=== PATIENT | male | born 1965 | race Caucasian/White ===

== ENCOUNTER 2017-03-07 17:28 | Inpatient (IN) | payer OTHER ==
[~2017-03-07] VITALS: Ht 177.8 cm; Wt 106.2 kg
[2017-03-07 18:29] LABS: INTER. NORMALIZED RATIO 1.8; PROTHROMBIN TIME 19.7 SEC (10.2-12.9)
[2017-03-07 18:32] LABS: CHLORIDE 103 mEq/L (99-109); POTASSIUM 4.1 mEq/L (3.7-5.4); SODIUM 137 mEq/L (136-147)
[2017-03-07 18:34] LABS: GLUCOSE 148 mg/dL (70-99)
[2017-03-07 18:36] LABS: ANION GAP 15 MEQ/L (2-14); TOTAL BILIRUBIN 2.9 mg/dL (0.0-1.0)
[2017-03-07 18:38] LABS: ALKALINE PHOSPHATASE 87 IU/L (3-129); GFR ESTIMATE (CALCULATED) > 59 mL/min/
[2017-03-07 18:39] LABS: UREA NITROGEN (BUN) 2 mg/dL (9-23)
[2017-03-07 18:41] LABS: LIPASE 101 U/L (1.0-51.0)
[2017-03-07 18:55] LABS: HEMATOCRIT 19.4 % (38.0-50.0); MCH 18.8 PG (29.0-34.0); MCHC 26.8 G/DL (30.0-36.0); MCV 70.3 FL (86-99); NRBC (%) 1.2 /100 WBC (0-0); PLATELET COUNT 82 K/uL (156-360); RBC DIS.WIDTH-CV 20.3 % (11.8-14.6); RBC DIS.WIDTH-SD 51.5 % (39-53); RED BLOOD COUNT 2.76 M/uL (4.00-5.50); WHITE BLOOD COUNT 3.4 K/uL (4.1-10.2)
[2017-03-07 19:02] LABS: ADD MIUA? YES; BILIRUBIN NEGATIVE; BLOOD NEGATIVE; COLOR YELLOW ((YELLOW)); GLUCOSE (STRIP) NEGATIVE; KETONES NEGATIVE; LEUKOCYTES NEGATIVE; NITRITE NEGATIVE; PROTEIN (STRIP) NEGATIVE; SPECIFIC GRAVITY 1.005 (1.000-1.030); UROBILINOGEN 0.2 MG/DL (0.2-1.0)
[2017-03-07 19:18] LABS: BACTERIA RARE /HPF; EPITHELIAL CELLS NONE SEEN /HPF; MUCUS NONE SEEN /LPF; RED BLOOD CELLS 0-5 /HPF (0-5); UCUL ADDED? NO; WHITE BLOOD CELLS 0-5 /HPF (0-5)
[2017-03-07 20:14] VITALS: BP 129/73
[2017-03-07 20:32] VITALS: BP 120/76
[2017-03-07] MEDS ORDERED: ADVIL200 MG PO (20:34)
[2017-03-07] MEDS ORDERED: COLBENEMID1 TABLET PO (20:36)
[2017-03-07 21:17] VITALS: BP 95/75
[2017-03-07 22:41] VITALS: BP 108/65
[2017-03-07 23:00] VITALS: BP 117/71; BP 117/74
[2017-03-08] VITALS (10 sets, daily range): BP systolic 101–124; BP diastolic 55–66
[2017-03-08 03:48] LABS: INTERNAL CONTROL VALID? YES
[2017-03-08 07:53] LABS: EOSINOPHIL (%) 2.2 % (0-5); EOSINOPHIL COUNT 0.1 K/uL (0-0.3); HEMATOCRIT 22.3 % (38.0-50.0); IMMATURE GRANULOCYTE (%) 0.6 % (0.0-0.7); INSTRUMENT ABS NEUTROPHIL CT 2.1 K/uL; LYMPHOCYTE COUNT 0.4 K/uL (1.0-2.8); MCHC 28.3 G/DL (30.0-36.0); MCV 74.3 FL (86-99); MONOCYTE (%) 18.2 % (3-12); MONOCYTE COUNT 0.6 K/uL (0-0.8); NEUTROPHIL (%) 65.8 % (45-76); NEUTROPHIL COUNT 2.1 K/uL (1.8-6.4); NRBC (%) 0.6 /100 WBC (0-0); PLATELET COUNT 74 K/uL (156-360); RBC DIS.WIDTH-CV 21.4 % (11.8-14.6); RBC DIS.WIDTH-SD 57.3 % (39-53); WHITE BLOOD COUNT 3.2 K/uL (4.1-10.2)
[2017-03-08 08:08] LABS: INTER. NORMALIZED RATIO 1.9; PROTHROMBIN TIME 21.5 SEC (10.2-12.9)
[2017-03-08 08:50] LABS: INTERNAL CONTROL VALID? YES
[2017-03-08 09:01] LABS: ALKALINE PHOSPHATASE 71 IU/L (3-129); ANION GAP 15 MEQ/L (2-14); CHLORIDE 103 MEQ/L (99-109); GFR ESTIMATE (CALCULATED) > 59 mL/min/; GLUCOSE 112 mg/dL (70-99); POTASSIUM 3.6 MEQ/L (3.7-5.4); SAMPLE HEMOLYSIS CHECK 0; SAMPLE ICTERIC CHECK 1; SAMPLE LIPEMIA CHECK 0; SODIUM 142 MEQ/L (136-147); TOTAL BILIRUBIN 4.7 MG/DL (0.0-1.0); UREA NITROGEN (BUN) 2 mg/dL (9-23)
[2017-03-08 10:53] LABS: TYPE OF FLUID PERITONEAL
[2017-03-08 12:23] LABS: BODY FLUID LDH 39 IU/L; BODY FLUID PROTEIN < 3.0 G/DL
[2017-03-08 12:33] LABS: BODY FLUID EOSINOPHILS 0 % (0-25); BODY FLUID RBC'S < 1000 /MM^3 (0-100); BODY FLUID WBC'S 81 /MM^3 (0-500); COMMENT MANY MACROPHAGES AND MESOTHELIAL CELLS; MONONUCLEAR WBC'S 92 %; POLYNUCLEAR WBC'S 8 % (0-25)
[2017-03-08 15:51] LABS: HEMATOCRIT 25.7 % (38.0-50.0); MCV 75.8 FL (86-99)
[2017-03-08 21:50] LABS: HEMATOCRIT 25.9 % (38.0-50.0); MCV 74.9 FL (86-99)
[2017-03-09 04:35] VITALS: BP 135/72
[2017-03-09 06:19] LABS: EOSINOPHIL (%) 2.8 % (0-5); EOSINOPHIL COUNT 0.1 K/uL (0-0.3); HEMATOCRIT 23.7 % (38.0-50.0); IMMATURE GRANULOCYTE (%) 0.4 % (0.0-0.7); INSTRUMENT ABS NEUTROPHIL CT 1.4 K/uL; LYMPHOCYTE COUNT 0.4 K/uL (1.0-2.8); MCH 22.4 PG (29.0-34.0); MCHC 30.4 G/DL (30.0-36.0); MCV 73.8 FL (86-99); MEAN PLAT.VOLUME 11.2 uM^3 (9.0-12.4); MONOCYTE COUNT 0.5 K/uL (0-0.8); NEUTROPHIL (%) 56.5 % (45-76); NEUTROPHIL COUNT 1.4 K/uL (1.8-6.4); NRBC (%) 0.8 /100 WBC (0-0); PLATELET COUNT 73 K/uL (156-360); RBC DIS.WIDTH-CV 21.2 % (11.8-14.6); RBC DIS.WIDTH-SD 56.3 % (39-53); RED BLOOD COUNT 3.21 M/uL (4.00-5.50); WHITE BLOOD COUNT 2.5 K/uL (4.1-10.2)
[2017-03-09 07:12] VITALS: BP 134/71
[2017-03-09 12:27] VITALS: BP 135/75
[2017-03-09 16:14] VITALS: BP 126/73
[2017-03-09 18:50] LABS: BODY FLUID PH 7.9 (())
[2017-03-09 19:31] VITALS: BP 120/67
[2017-03-09 23:05] VITALS: BP 144/69
[2017-03-10] VITALS (8 sets, daily range): BP systolic 123–140; BP diastolic 70–81
[2017-03-10 06:00] LABS: EOSINOPHIL (%) 4.7 % (0-5); EOSINOPHIL COUNT 0.1 K/uL (0-0.3); HEMATOCRIT 23.7 % (38.0-50.0); IMMATURE GRANULOCYTE (%) 0.7 % (0.0-0.7); INSTRUMENT ABS NEUTROPHIL CT 1.6 K/uL; LYMPHOCYTE COUNT 0.4 K/uL (1.0-2.8); MCH 21.7 PG (29.0-34.0); MCHC 29.1 G/DL (30.0-36.0); MCV 74.5 FL (86-99); MONOCYTE COUNT 0.6 K/uL (0-0.8); NEUTROPHIL (%) 58.6 % (45-76); NEUTROPHIL COUNT 1.6 K/uL (1.8-6.4); NRBC (%) 0.7 /100 WBC (0-0); PLATELET COUNT 67 K/uL (156-360); RBC DIS.WIDTH-SD 57.4 % (39-53); RED BLOOD COUNT 3.18 M/uL (4.00-5.50); WHITE BLOOD COUNT 2.8 K/uL (4.1-10.2)
[2017-03-10 06:28] LABS: GFR ESTIMATE (CALCULATED) > 59 mL/min/; GLUCOSE 139 mg/dL (70-99); SODIUM 140 MEQ/L (136-147); UREA NITROGEN (BUN) 5 mg/dL (9-23)
[2017-03-10 06:29] LABS: ALKALINE PHOSPHATASE 59 IU/L (3-129); ANION GAP 9 MEQ/L (2-14); CHLORIDE 99 MEQ/L (99-109); MAGNESIUM 1.1 mg/dl (1.3-2.7); POTASSIUM 2.4 MEQ/L (3.7-5.4); SAMPLE HEMOLYSIS CHECK 0; SAMPLE ICTERIC CHECK 1; SAMPLE LIPEMIA CHECK 0; TOTAL BILIRUBIN 4.7 MG/DL (0.0-1.0)
[2017-03-10 18:32] LABS: HEMATOCRIT 30.2 % (38.0-50.0); MCV 76.6 FL (86-99)
[2017-03-10 22:26] LABS: MAGNESIUM 1.2 mg/dl (1.3-2.7); POTASSIUM 2.6 MEQ/L (3.7-5.4)
[2017-03-11 04:00] VITALS: BP 106/56
[2017-03-11 06:00] LABS: HEMATOCRIT 27.6 % (38.0-50.0); MCH 23.3 PG (29.0-34.0); MCHC 30.4 G/DL (30.0-36.0); MCV 76.7 FL (86-99); NRBC (%) 0.9 /100 WBC (0-0); RBC DIS.WIDTH-CV 23.6 % (11.8-14.6); RBC DIS.WIDTH-SD 61.4 % (39-53); WHITE BLOOD COUNT 3.5 K/uL (4.1-10.2)
[2017-03-11 06:11] LABS: ALKALINE PHOSPHATASE 58 IU/L (3-129); ANION GAP 10 MEQ/L (2-14); CHLORIDE 97 MEQ/L (99-109); GFR ESTIMATE (CALCULATED) > 59 mL/min/; GLUCOSE 120 mg/dL (70-99); POTASSIUM 2.9 MEQ/L (3.7-5.4); SAMPLE HEMOLYSIS CHECK 0; SAMPLE ICTERIC CHECK 1; SAMPLE LIPEMIA CHECK 0; SODIUM 137 MEQ/L (136-147); TOTAL BILIRUBIN 5.1 MG/DL (0.0-1.0); UREA NITROGEN (BUN) 6 mg/dL (9-23)
[2017-03-11 06:24] LABS: ANISOCYTOSIS 1+; BURR CELLS 1+; EOSINOPHIL (%) 2.8 % (0-5); EOSINOPHIL COUNT 0.1 K/uL (0-0.3); HYPOCHROMASIA 2+; IMMATURE GRANULOCYTE (%) 0.6 % (0.0-0.7); INSTRUMENT ABS NEUTROPHIL CT 2.2 K/uL; LYMPHOCYTE COUNT 0.5 K/uL (1.0-2.8); MACROCYTES 1+; MONOCYTE (%) 19.1 % (3-12); MONOCYTE COUNT 0.7 K/uL (0-0.8); NEUTROPHIL (%) 63.2 % (45-76); NEUTROPHIL COUNT 2.2 K/uL (1.8-6.4); OVALOCYTES 1+; PLAT.SUFFICIENCY DECREASED; PLATELET COUNT 70 K/uL (156-360); STOMATOCYTES 1+; TARGET CELLS 1+
[2017-03-11 07:02] VITALS: BP 108/52
[2017-03-11 09:08] LABS: MAGNESIUM 1.4 mg/dl (1.3-2.7)
[2017-03-11 11:38] VITALS: BP 103/65
[2017-03-11 16:45] VITALS: BP 109/58
[2017-03-11 19:35] VITALS: BP 111/62
[2017-03-11 23:25] VITALS: BP 114/62
[2017-03-12 03:34] VITALS: BP 111/60
[2017-03-12 07:05] LABS: EOSINOPHIL (%) 3.8 % (0-5); EOSINOPHIL COUNT 0.1 K/uL (0-0.3); IMMATURE GRANULOCYTE (%) 0.3 % (0.0-0.7); LYMPHOCYTE COUNT 0.5 K/uL (1.0-2.8); MCH 23.5 PG (29.0-34.0); MCHC 30.3 G/DL (30.0-36.0); MCV 77.3 FL (86-99); MONOCYTE COUNT 0.8 K/uL (0-0.8); NEUTROPHIL (%) 57.5 % (45-76); RBC DIS.WIDTH-CV 24.4 % (11.8-14.6); RBC DIS.WIDTH-SD 65.7 % (39-53); RED BLOOD COUNT 3.75 M/uL (4.00-5.50); WHITE BLOOD COUNT 3.4 K/uL (4.1-10.2)
[2017-03-12 07:09] LABS: ALKALINE PHOSPHATASE 52 IU/L (3-129); ANION GAP 8 MEQ/L (2-14); CHLORIDE 98 MEQ/L (99-109); GFR ESTIMATE (CALCULATED) > 59 mL/min/; GLUCOSE 147 mg/dL (70-99); SAMPLE HEMOLYSIS CHECK 0; SAMPLE ICTERIC CHECK 1; SAMPLE LIPEMIA CHECK 0; SODIUM 136 MEQ/L (136-147); TOTAL BILIRUBIN 5.1 MG/DL (0.0-1.0); UREA NITROGEN (BUN) 7 mg/dL (9-23)
[2017-03-12 07:26] LABS: HEMATOLOGY COMMENT 1 SN; PLAT.SUFFICIENCY DECREASED; PLATELET COUNT 64 K/uL (156-360)
[2017-03-12 08:10] VITALS: BP 128/65
[2017-03-12 10:35] LABS: MAGNESIUM 1.4 mg/dl (1.3-2.7)
[2017-03-12 20:00] VITALS: BP 103/58
[2017-03-12 23:53] VITALS: BP 115/65
[2017-03-13 04:20] VITALS: BP 90/54
[2017-03-13 07:48] LABS: ANION GAP 6 MEQ/L (2-14); CHLORIDE 99 MEQ/L (99-109); GFR ESTIMATE (CALCULATED) > 59 mL/min/; GLUCOSE 142 mg/dL (70-99); MAGNESIUM 1.6 mg/dl (1.3-2.7); POTASSIUM 3.3 MEQ/L (3.7-5.4); SAMPLE HEMOLYSIS CHECK 0; SAMPLE ICTERIC CHECK 1; SAMPLE LIPEMIA CHECK 0; SODIUM 136 MEQ/L (136-147); UREA NITROGEN (BUN) 6 mg/dL (9-23)
[2017-03-13 07:57] LABS: HEMATOCRIT 27.8 % (38.0-50.0); MCH 23.6 PG (29.0-34.0); MCHC 30.2 G/DL (30.0-36.0); MCV 78.1 FL (86-99); PLAT.SUFFICIENCY DECREASED; RBC DIS.WIDTH-CV 24.8 % (11.8-14.6); RBC DIS.WIDTH-SD 68.6 % (39-53); RED BLOOD COUNT 3.56 M/uL (4.00-5.50); WHITE BLOOD COUNT 2.9 K/uL (4.1-10.2)
[2017-03-13 08:10] LABS: PLATELET COUNT 58 K/uL (156-360)
[2017-03-13 08:11] VITALS: BP 110/70
[2017-03-13] MEDS ORDERED: B-1100 MG PO (10:44)
[2017-03-13] MEDS ORDERED: FUROSEMIDE40 MG PO (10:44)
[2017-03-13] MEDS ORDERED: PROPRANOLOL HCL10 MG PO (10:44)
[2017-03-13] MEDS ORDERED: PANTOPRAZOLE SO40 MG PO (10:44)
[2017-03-13] MEDS ORDERED: FOLIC ACID1 MG PO (10:44)
[2017-03-13] MEDS ORDERED: ALDACTONE100 MG PO (10:44)
[2017-03-13] MEDS ORDERED: XIFAXAN550 MG PO (10:44)
[2017-03-13] MEDS ORDERED: KRISTALOSE10 GM PO (10:44)
[2017-03-13] MEDS ORDERED: CEFDINIR300 MG PO (10:44)
[2017-03-13 11:42] VITALS: BP 115/67
== END 2017-03-13 15:02 | disposition home or self-care (01) | DRG 432 ==
LOC: EME 17:28 → EDOF 20:19 → 4EAST 20:19 → ENRESERV 20:20 → 4EAST 22:49 → ENRESERV 03-11 07:52 → 3EAST 03-11 11:16
PROVIDERS: Emergency Medicine; Hospitalist; Internal Medicine; Internal Medicine Gastroenterology; Student in an Organized Health Care Education/Training Program
PROC: 30233N1 Transfusion of Nonautologous Red Blood Cells into Peripheral Vein, Percutaneous Approach (ICD-10-PCS; principal; 2017-03-07)
PROC: 0W9G3ZZ Drainage of Peritoneal Cavity, Percutaneous Approach (ICD-10-PCS; 2017-03-08)
PROC: 0W9G3ZZ Drainage of Peritoneal Cavity, Percutaneous Approach (ICD-10-PCS; 2017-03-10)
DX: K70.31 Alcoholic cirrhosis of liver with ascites (principal); J18.9 Pneumonia, unspecified organism; D61.818 Other pancytopenia; K72.90 Hepatic failure, unspecified without coma; E72.20 Disorder of urea cycle metabolism, unspecified; E83.42 Hypomagnesemia; E87.6 Hypokalemia; F10.20 Alcohol dependence, uncomplicated; E66.9 Obesity, unspecified; Z68.32 Body mass index [BMI] 32.0-32.9, adult; Z83.3 Family history of diabetes mellitus
CPT/HCPCS: 49083; 71010; 74176; 80048; 80053; 81003; 82105 90; 82140; 82272; 82378; 82607; 82746; 82945; 83605; 83615 91; 83690; 83735; 83986 90; 84100; 84132 91; 84157; 85014; 85018; 85025; 85027; 85610; 86850; 86900; 86901; 86920; 87040; 87070; 87205; 87449; 87493; 88108; 88305; 89051; 93005; 93970; 97530 GP; 99281; 99285; C9113; J0456; J0696; J1940; J2060; J2354; J3475; J3480; J7050; P9016; P9047

== ENCOUNTER 2017-06-30 18:08 | Inpatient (IN) | payer OTHER ==
[~2017-06-30] VITALS: Ht 177.8 cm; Wt 90.7 kg
[~2017-06-30 18:08] MED LIST: ADVIL200 MG PO; ALDACTONE100 MG PO; B-1100 MG PO; CEFDINIR300 MG PO; COLBENEMID1 TABLET PO; FOLIC ACID1 MG PO; FUROSEMIDE40 MG PO; KRISTALOSE10 GM PO; PANTOPRAZOLE SO40 MG PO; PROPRANOLOL HCL10 MG PO; XIFAXAN550 MG PO
[2017-06-30 20:05] LABS: BASOPHIL (%) 0.4 % (0-1); EOSINOPHIL (%) 0.8 % (0-5); EOSINOPHIL COUNT 0.1 K/uL (0-0.3); HEMATOCRIT 40.4 % (38.0-50.0); HEMOGLOBIN 13.5 G/DL (12.5-16.6); IMMATURE GRANULOCYTE (%) 0.7 % (0.0-0.7); LYMPHOCYTE (%) 10.2 % (15-42); LYMPHOCYTE COUNT 0.9 K/uL (1.0-2.8); MCH 30.1 PG (29.0-34.0); MCHC 33.4 G/DL (30.0-36.0); MONOCYTE (%) 13.7 % (3-12); MONOCYTE COUNT 1.2 K/uL (0-0.8); NEUTROPHIL (%) 74.2 % (45-76); NEUTROPHIL COUNT 6.4 K/uL (1.8-6.4); PLATELET COUNT 90 K/uL (156-360); RBC DIS.WIDTH-CV 16.1 % (11.8-14.6); RBC DIS.WIDTH-SD 53.5 % (39-53); RED BLOOD COUNT 4.49 M/uL (4.00-5.50); WHITE BLOOD COUNT 8.6 K/uL (4.1-10.2)
[2017-06-30 20:11] LABS: INTER. NORMALIZED RATIO 1.5
[2017-06-30 20:13] LABS: ALBUMIN 2.9 g/dL (3.2-4.8); CHLORIDE 80 mEq/L (99-109)
[2017-06-30 20:16] LABS: TOTAL PROTEIN 7.5 g/dL (6.4-8.3)
[2017-06-30 20:18] LABS: TOTAL BILIRUBIN 4.9 mg/dL (0.0-1.0)
[2017-06-30 20:19] LABS: ALKALINE PHOSPHATASE 149 IU/L (3-129)
[2017-06-30 20:20] LABS: UREA NITROGEN (BUN) 13 mg/dL (9-23)
[2017-06-30 20:21] LABS: AST (GOT) 27 IU/L (2-34); CARBON DIOXIDE (BICARBONATE) 29.9 MEQ/L (20-31); DIRECT BILIRUBIN 3.1 mg/dL (0.0-0.3)
[2017-06-30 20:22] LABS: ALT (GPT) 16 IU/L (3-49)
[2017-06-30 20:29] LABS: CREATININE 1.8 mg/dL (0.6-1.3); GFR ESTIMATE (CALCULATED) 42 mL/min/ (58.99-99999); GLUCOSE 738 mg/dL (70-99); SODIUM 116 mEq/L (136-147)
[2017-06-30] MEDS ORDERED: SPIRONOLACTONE100 MG PO (21:42)
[2017-06-30] MEDS ORDERED: INDERAL10 MG PO (21:43)
[2017-06-30] MEDS ORDERED: FUROSEMIDE20 MG PO (21:44)
[2017-06-30] MEDS ORDERED: FERROUS SULFAT324 M1 PO (21:47)
[2017-06-30] MEDS ORDERED: BENZONATATE100 MG PO (21:48)
[2017-07-01 07:15] LABS: HEMOGLOBIN A1c (GLYCOHEMOGLOB) 12.2 % HGB (Below 5.7)
[2017-07-01 07:42] LABS: HEMATOCRIT 40.1 % (38.0-50.0); HEMOGLOBIN 13.9 G/DL (12.5-16.6); MCH 30.3 PG (29.0-34.0); MCHC 34.7 G/DL (30.0-36.0); MCV 87.6 FL (86-99); RBC DIS.WIDTH-CV 16.4 % (11.8-14.6); RBC DIS.WIDTH-SD 51.9 % (39-53); RED BLOOD COUNT 4.58 M/uL (4.00-5.50); WHITE BLOOD COUNT 5.1 K/uL (4.1-10.2)
[2017-07-01 08:11] LABS: POTASSIUM 4.3 mEq/L (3.7-5.4)
[2017-07-01 08:17] LABS: UREA NITROGEN (BUN) 11 mg/dL (9-23)
[2017-07-01 08:18] LABS: PLAT.SUFFICIENCY DECREASED
[2017-07-01 08:19] LABS: PLATELET COUNT 57 K/uL (156-360)
[2017-07-01 08:29] LABS: CHLORIDE 91 mEq/L (99-109); CREATININE 1.1 mg/dL (0.6-1.3); GFR ESTIMATE (CALCULATED) > 59 mL/min/ (58.99-99999); GLUCOSE 466 mg/dL (70-99); SODIUM 127 mEq/L (136-147)
[2017-07-01 12:20] VITALS: BP 131/81
[2017-07-01 13:46] LABS: CREATININE 0.8 MG/DL (0.6-1.3); GFR ESTIMATE (CALCULATED) > 59 mL/min/ (58.99-99999)
[2017-07-01 14:33] LABS: APPEARANCE CLEAR ((CLEAR)); BILIRUBIN NEGATIVE; BLOOD NEGATIVE; COLOR YELLOW ((YELLOW)); GLUCOSE (STRIP) >=500; KETONES NEGATIVE; LEUKOCYTES NEGATIVE; NITRITE NEGATIVE; PROTEIN (STRIP) NEGATIVE; SPECIFIC GRAVITY 1.022 (1.000-1.030)
[2017-07-01 15:22] LABS: UR CREATININE CONCENTRATION 31.2 MG/DL
[2017-07-01 16:33] LABS: POTASSIUM 4.3 MEQ/L (3.7-5.4); SODIUM 125 MEQ/L (136-147); UREA NITROGEN (BUN) 11 mg/dL (9-23)
[2017-07-01 16:34] LABS: CHLORIDE 92 MEQ/L (99-109); GLUCOSE 493 mg/dL (70-99)
[2017-07-01 18:28] LABS: CHLORIDE 96 MEQ/L (99-109); POTASSIUM 4.2 MEQ/L (3.7-5.4); SODIUM 128 MEQ/L (136-147)
[2017-07-01 18:33] LABS: CREATININE 0.7 MG/DL (0.6-1.3); GFR ESTIMATE (CALCULATED) > 59 mL/min/ (58.99-99999); GLUCOSE 326 mg/dL (70-99); UREA NITROGEN (BUN) 10 mg/dL (9-23)
[2017-07-01 19:53] VITALS: BP 125/61
[2017-07-01 23:47] VITALS: BP 103/71
[2017-07-02 03:45] VITALS: BP 119/68
[2017-07-02 05:35] LABS: HEMATOCRIT 38.7 % (38.0-50.0); MCH 30.2 PG (29.0-34.0); MCHC 33.6 G/DL (30.0-36.0); RBC DIS.WIDTH-CV 17.2 % (11.8-14.6); RBC DIS.WIDTH-SD 56.6 % (39-53)
[2017-07-02 06:02] LABS: CHLORIDE 95 MEQ/L (99-109); CREATININE 0.7 MG/DL (0.6-1.3); GFR ESTIMATE (CALCULATED) > 59 mL/min/ (58.99-99999); GLUCOSE 256 mg/dL (70-99); POTASSIUM 4.5 MEQ/L (3.7-5.4); SODIUM 130 MEQ/L (136-147); UREA NITROGEN (BUN) 8 mg/dL (9-23)
[2017-07-02 06:09] LABS: PLAT.SUFFICIENCY DECREASED; PLATELET COUNT 40 K/uL (156-360)
[2017-07-02 08:18] VITALS: BP 108/71
[2017-07-02 11:35] VITALS: BP 110/72
[2017-07-02 16:13] VITALS: BP 111/73
[2017-07-02 20:16] VITALS: BP 96/60
[2017-07-02 23:34] VITALS: BP 97/62
[2017-07-03 03:55] VITALS: BP 99/62
[2017-07-03 06:50] LABS: HEMATOCRIT 37.5 % (38.0-50.0); HEMOGLOBIN 12.6 G/DL (12.5-16.6); MCHC 33.6 G/DL (30.0-36.0); MCV 89.3 FL (86-99); PLATELET COUNT 51 K/uL (156-360); RBC DIS.WIDTH-CV 17.3 % (11.8-14.6); RBC DIS.WIDTH-SD 56.9 % (39-53); WHITE BLOOD COUNT 4.3 K/uL (4.1-10.2)
[2017-07-03 07:01] LABS: INTER. NORMALIZED RATIO 1.5
[2017-07-03 07:04] LABS: PTT 32.6 SEC (25-37)
[2017-07-03 07:09] LABS: CHLORIDE 95 MEQ/L (99-109); CREATININE 0.7 MG/DL (0.6-1.3); GFR ESTIMATE (CALCULATED) > 59 mL/min/ (58.99-99999); GLUCOSE 232 mg/dL (70-99); POTASSIUM 3.8 MEQ/L (3.7-5.4); SODIUM 129 MEQ/L (136-147); UREA NITROGEN (BUN) 7 mg/dL (9-23)
[2017-07-03 08:25] VITALS: BP 113/58
[2017-07-03 11:50] VITALS: BP 112/60
[2017-07-03 16:21] VITALS: BP 99/56
[2017-07-03 20:30] VITALS: BP 116/71
[2017-07-04] VITALS: BP 85/51
[2017-07-04 03:48] VITALS: BP 109/68
[2017-07-04 04:42] LABS: HEMATOCRIT 40.2 % (38.0-50.0); HEMOGLOBIN 13.5 G/DL (12.5-16.6); MCH 30.3 PG (29.0-34.0); MCHC 33.6 G/DL (30.0-36.0); MCV 90.1 FL (86-99); PLATELET COUNT 74 K/uL (156-360); RBC DIS.WIDTH-CV 17.2 % (11.8-14.6); RBC DIS.WIDTH-SD 56.9 % (39-53); RED BLOOD COUNT 4.46 M/uL (4.00-5.50)
[2017-07-04 04:52] LABS: CHLORIDE 99 mEq/L (99-109); POTASSIUM 4.1 mEq/L (3.7-5.4); SODIUM 132 mEq/L (136-147)
[2017-07-04 04:54] LABS: GLUCOSE 223 mg/dL (70-99)
[2017-07-04 04:58] LABS: CREATININE 0.8 mg/dL (0.6-1.3); GFR ESTIMATE (CALCULATED) > 59 mL/min/ (58.99-99999)
[2017-07-04 04:59] LABS: UREA NITROGEN (BUN) 8 mg/dL (9-23)
[2017-07-04 08:24] VITALS: BP 108/63
[2017-07-04 11:40] VITALS: BP 100/60
[2017-07-04] MEDS ORDERED: LEVEMIR100 UNIT/2 SC (14:32)
[2017-07-04] MEDS ORDERED: NOVOLOG 10100 UNITS/ SC (14:32)
[2017-07-04] MEDS ORDERED: INDERAL10 MG PO (14:32)
== END 2017-07-04 15:45 | disposition home or self-care (01) | DRG 683 ==
LOC: EME 18:08 → 4SOUTH 22:09 → EDOF 22:09 → ENRESERV 22:17 → 4SOUTH 07-01 12:17
PROVIDERS: Anesthesiology; Emergency Medicine; Hospitalist; Internal Medicine; Physician Assistant
DX: N17.9 Acute kidney failure, unspecified (principal); E87.1 Hypo-osmolality and hyponatremia; E11.65 Type 2 diabetes mellitus with hyperglycemia; K70.31 Alcoholic cirrhosis of liver with ascites; E86.0 Dehydration; K72.90 Hepatic failure, unspecified without coma; F43.23 Adjustment disorder with mixed anxiety and depressed mood; I10 Essential (primary) hypertension; F10.20 Alcohol dependence, uncomplicated; Y90.9 Presence of alcohol in blood, level not specified; D69.59 Other secondary thrombocytopenia; G43.909 Migraine, unspecified, not intractable, without status migrainosus; Z79.4 Long term (current) use of insulin; Z83.3 Family history of diabetes mellitus; Z82.49 Family history of ischemic heart disease and other diseases of the circulatory system; Z83.79 Family history of other diseases of the digestive system
CPT/HCPCS: 36415; 80048; 80048 91; 80076; 81003; 82010; 82140; 82436; 82570; 82607; 82728; 82746; 82803; 82948; 83036; 83540; 83735; 83935; 84133; 84156; 84300; 85025; 85025 91; 85027; 85610; 85730; 99281; 99285; J1815; J7030

== ENCOUNTER 2017-10-12 10:31 | Inpatient (IN) | payer OTHER ==
[~2017-10-12] VITALS: Ht 177.8 cm; Wt 91.0 kg
[~2017-10-12 10:31] MED LIST changes: +BENZONATATE100 MG PO; +FERROUS SULFAT324 M1 PO; +FUROSEMIDE20 MG PO; +INDERAL10 MG PO; +LEVEMIR100 UNIT/2 SC; +NOVOLOG 10100 UNITS/ SC; +SPIRONOLACTONE100 MG PO
[2017-10-12 11:33] LABS: BASOPHIL (%) 0.4 % (0-1); EOSINOPHIL (%) 0.2 % (0-5); HEMATOCRIT 31.6 % (38.0-50.0); HEMOGLOBIN 10.8 G/DL (12.5-16.6); IMMATURE GRANULOCYTE (%) 0.6 % (0.0-0.7); LYMPHOCYTE (%) 8.9 % (15-42); LYMPHOCYTE COUNT 0.8 K/uL (1.0-2.8); MCHC 34.2 G/DL (30.0-36.0); MONOCYTE (%) 8.7 % (3-12); MONOCYTE COUNT 0.8 K/uL (0-0.8); NEUTROPHIL (%) 81.2 % (45-76); NEUTROPHIL COUNT 7.4 K/uL (1.8-6.4); RBC DIS.WIDTH-CV 14.3 % (11.8-14.6); RED BLOOD COUNT 3.86 M/uL (4.00-5.50); WHITE BLOOD COUNT 9.1 K/uL (4.1-10.2)
[2017-10-12 11:36] LABS: MCV 81.9 FL (86-99); PLATELET COUNT 132 K/uL (156-360)
[2017-10-12 11:41] LABS: CHLORIDE 98 mEq/L (99-109); POTASSIUM 3.6 mEq/L (3.7-5.4); SODIUM 133 mEq/L (136-147)
[2017-10-12 11:43] LABS: GLUCOSE 207 mg/dL (70-99)
[2017-10-12 11:47] LABS: CREATININE 0.8 mg/dL (0.6-1.3); GFR ESTIMATE (CALCULATED) > 59 mL/min/ (58.99-99999)
[2017-10-12 11:48] LABS: UREA NITROGEN (BUN) 15 mg/dL (9-23)
[2017-10-12 15:09] LABS: HEMATOCRIT 30.7 % (38.0-50.0); HEMOGLOBIN 10.4 G/DL (12.5-16.6); MCV 83.4 FL (86-99)
[2017-10-12 15:19] LABS: INTER. NORMALIZED RATIO 1.8
[2017-10-12 15:22] LABS: PTT 32.1 SEC (25-37)
[2017-10-12] MEDS ORDERED: LEVEMIR100 UNIT/2 SC (15:38)
[2017-10-12] MEDS ORDERED: NOVOLOG 10100 UNITS/ SC (15:39)
[2017-10-12] MEDS ORDERED: KRISTALOSE10 GM PO (15:50)
[2017-10-12] MEDS ORDERED: FERROUS SULFAT324 M1 PO (15:50)
[2017-10-12] MEDS ORDERED: METFORMIN HCL500 M1 PO (15:51)
[2017-10-12] MEDS ORDERED: PANTOPRAZOLE SO40 MG PO (15:55)
[2017-10-12 16:40] VITALS: BP 134/72
[2017-10-12 16:50] VITALS: BP 134/72
[2017-10-12 19:00] VITALS: BP 102/55
[2017-10-12 20:19] VITALS: BP 126/68
[2017-10-12 20:34] VITALS: BP 108/70
[2017-10-12 22:45] VITALS: BP 93/49
[2017-10-12 23:26] LABS: HEMATOCRIT 23.9 % (38.0-50.0); MCV 83.3 FL (86-99)
[2017-10-13] VITALS (11 sets, daily range): BP systolic 95–135; BP diastolic 52–78
[2017-10-13 05:36] LABS: INTER. NORMALIZED RATIO 1.5
[2017-10-13 05:51] LABS: ALKALINE PHOSPHATASE 82 IU/L (3-129); ALT (GPT) 15 IU/L (3-49); AST (GOT) 21 IU/L (2-34); CHLORIDE 100 MEQ/L (99-109); CREATININE 0.9 MG/DL (0.6-1.3); GFR ESTIMATE (CALCULATED) > 59 mL/min/ (58.99-99999); GLUCOSE 166 mg/dL (70-99); POTASSIUM 3.3 MEQ/L (3.7-5.4); SODIUM 135 MEQ/L (136-147); TOTAL BILIRUBIN 4.2 MG/DL (0.0-1.0); TOTAL PROTEIN 5.6 G/DL (6.4-8.3); UREA NITROGEN (BUN) 14 mg/dL (9-23)
[2017-10-13 05:56] LABS: BASOPHIL (%) 0.6 % (0-1); EOSINOPHIL (%) 2.3 % (0-5); EOSINOPHIL COUNT 0.1 K/uL (0-0.3); HEMATOCRIT 23.2 % (38.0-50.0); HEMOGLOBIN 7.4 G/DL (12.5-16.6); IMMATURE GRANULOCYTE (%) 0.6 % (0.0-0.7); LYMPHOCYTE (%) 19.7 % (15-42); LYMPHOCYTE COUNT 0.7 K/uL (1.0-2.8); MCHC 31.9 G/DL (30.0-36.0); MCV 84.7 FL (86-99); MONOCYTE (%) 15.1 % (3-12); MONOCYTE COUNT 0.5 K/uL (0-0.8); NEUTROPHIL (%) 61.7 % (45-76); NEUTROPHIL COUNT 2.2 K/uL (1.8-6.4); NRBC (%) 0.6 /100 WBC (0-0); RBC DIS.WIDTH-CV 14.6 % (11.8-14.6); RBC DIS.WIDTH-SD 44.5 % (39-53); WHITE BLOOD COUNT 3.5 K/uL (4.1-10.2)
[2017-10-13 05:57] LABS: RED BLOOD COUNT 2.74 M/uL (4.00-5.50)
[2017-10-13 06:07] LABS: PLAT.SUFFICIENCY DECREASED
[2017-10-13 06:21] LABS: PLATELET COUNT 64 K/uL (156-360)
[2017-10-13 15:02] LABS: HEMATOCRIT 28.2 % (38.0-50.0); MCV 86.2 FL (86-99)
[2017-10-14 04:15] VITALS: BP 106/58
[2017-10-14 07:22] VITALS: BP 120/68
[2017-10-14 09:56] LABS: HEMATOCRIT 27.2 % (38.0-50.0); HEMOGLOBIN 8.6 G/DL (12.5-16.6); MCH 27.7 PG (29.0-34.0); MCHC 31.6 G/DL (30.0-36.0); MCV 87.5 FL (86-99); NRBC (%) 0.8 /100 WBC (0-0); PLATELET COUNT 59 K/uL (156-360); RBC DIS.WIDTH-CV 14.6 % (11.8-14.6); RBC DIS.WIDTH-SD 46.1 % (39-53); RED BLOOD COUNT 3.11 M/uL (4.00-5.50); WHITE BLOOD COUNT 2.6 K/uL (4.1-10.2)
[2017-10-14 12:49] VITALS: BP 148/77
[2017-10-14 12:59] VITALS: BP 148/77
[2017-10-14 13:28] LABS: HEMATOCRIT 26.1 % (38.0-50.0); HEMOGLOBIN 8.5 G/DL (12.5-16.6); MCH 28.7 PG (29.0-34.0); MCHC 32.6 G/DL (30.0-36.0); MCV 88.2 FL (86-99); NRBC (%) 1.3 /100 WBC (0-0); PLATELET COUNT 64 K/uL (156-360); RBC DIS.WIDTH-CV 14.6 % (11.8-14.6); RED BLOOD COUNT 2.96 M/uL (4.00-5.50); WHITE BLOOD COUNT 3.1 K/uL (4.1-10.2)
[2017-10-14 15:12] VITALS: BP 132/67
[2017-10-14 20:37] VITALS: BP 117/63
[2017-10-15] VITALS (8 sets, daily range): BP systolic 98–130; BP diastolic 53–71
[2017-10-15 05:28] LABS: BASOPHIL (%) 0.7 % (0-1); EOSINOPHIL (%) 2.9 % (0-5); EOSINOPHIL COUNT 0.1 K/uL (0-0.3); HEMATOCRIT 25.5 % (38.0-50.0); HEMOGLOBIN 8.2 G/DL (12.5-16.6); IMMATURE GRANULOCYTE (%) 0.7 % (0.0-0.7); LYMPHOCYTE (%) 14.6 % (15-42); LYMPHOCYTE COUNT 0.4 K/uL (1.0-2.8); MCH 28.3 PG (29.0-34.0); MCHC 32.2 G/DL (30.0-36.0); MCV 87.9 FL (86-99); MONOCYTE (%) 17.5 % (3-12); MONOCYTE COUNT 0.5 K/uL (0-0.8); NEUTROPHIL (%) 63.6 % (45-76); NEUTROPHIL COUNT 1.7 K/uL (1.8-6.4); PLATELET COUNT 55 K/uL (156-360); RBC DIS.WIDTH-CV 14.8 % (11.8-14.6); RBC DIS.WIDTH-SD 46.5 % (39-53); WHITE BLOOD COUNT 2.7 K/uL (4.1-10.2)
[2017-10-15 05:59] LABS: CHLORIDE 105 MEQ/L (99-109); CREATININE 0.7 MG/DL (0.6-1.3); GFR ESTIMATE (CALCULATED) > 59 mL/min/ (58.99-99999); GLUCOSE 158 mg/dL (70-99); POTASSIUM 3.7 MEQ/L (3.7-5.4); SODIUM 139 MEQ/L (136-147); UREA NITROGEN (BUN) 6 mg/dL (9-23)
[2017-10-15 14:17] LABS: FERRITIN 14 NG/ML (22-322)
[2017-10-15 15:57] LABS: IRON < 10 MCG/DL (35-150); TRANSFERRIN (TIBC) 283.6 mg/dL (215-380); TRANSFERRIN SATUR. 4 % (20-55)
[2017-10-16 05:26] LABS: STOOL OCCULT BLD 1ST SPECIMEN POSITIVE
[2017-10-16 06:09] LABS: BASOPHIL (%) 0.3 % (0-1); EOSINOPHIL COUNT 0.1 K/uL (0-0.3); HEMATOCRIT 26.3 % (38.0-50.0); HEMOGLOBIN 8.4 G/DL (12.5-16.6); IMMATURE GRANULOCYTE (%) 0.7 % (0.0-0.7); LYMPHOCYTE (%) 16.6 % (15-42); LYMPHOCYTE COUNT 0.5 K/uL (1.0-2.8); MCH 27.8 PG (29.0-34.0); MCHC 31.9 G/DL (30.0-36.0); MCV 87.1 FL (86-99); MONOCYTE (%) 19.5 % (3-12); MONOCYTE COUNT 0.6 K/uL (0-0.8); NEUTROPHIL (%) 59.9 % (45-76); NEUTROPHIL COUNT 1.8 K/uL (1.8-6.4); PLATELET COUNT 59 K/uL (156-360); RBC DIS.WIDTH-CV 15.1 % (11.8-14.6); RBC DIS.WIDTH-SD 45.7 % (39-53); RED BLOOD COUNT 3.02 M/uL (4.00-5.50)
[2017-10-16 06:34] LABS: CHLORIDE 104 MEQ/L (99-109); CREATININE 0.8 MG/DL (0.6-1.3); GFR ESTIMATE (CALCULATED) > 59 mL/min/ (58.99-99999); GLUCOSE 129 mg/dL (70-99); POTASSIUM 3.8 MEQ/L (3.7-5.4); SODIUM 137 MEQ/L (136-147); UREA NITROGEN (BUN) 7 mg/dL (9-23)
[2017-10-16 08:01] VITALS: BP 107/57
[2017-10-16 11:39] VITALS: BP 103/58
[2017-10-16] MEDS ORDERED: BACTRIM,SEPT1 TABLET PO (14:36)
== END 2017-10-16 16:44 | disposition home or self-care (01) | DRG 378 ==
LOC: EME 10:31 → EDOF 14:03 → ENRESERV 14:03 → 4EAST 14:03 → ENRESERV 15:52 → 4EAST 16:43 → ENRESERV 10-15 14:53 → 5SOUTH 10-15 17:25 → ENPENDDIS 10-16 15:36 → 5SOUTH 10-16 16:44
PROVIDERS: Emergency Medicine; Hospitalist; Internal Medicine
PROC: 30233K1 Transfusion of Nonautologous Frozen Plasma into Peripheral Vein, Percutaneous Approach (ICD-10-PCS; principal; 2017-10-13)
PROC: 30233N1 Transfusion of Nonautologous Red Blood Cells into Peripheral Vein, Percutaneous Approach (ICD-10-PCS; principal; 2017-10-13)
PROC: 0DJ08ZZ Inspection of Upper Intestinal Tract, Via Natural or Artificial Opening Endoscopic (ICD-10-PCS; principal; 2017-10-13)
DX: K92.2 Gastrointestinal hemorrhage, unspecified (principal); K76.6 Portal hypertension; I85.00 Esophageal varices without bleeding; K70.30 Alcoholic cirrhosis of liver without ascites; K92.0 Hematemesis; D69.59 Other secondary thrombocytopenia; F10.10 Alcohol abuse, uncomplicated; I10 Essential (primary) hypertension; E11.9 Type 2 diabetes mellitus without complications; D64.9 Anemia, unspecified; K31.89 Other diseases of stomach and duodenum; Z82.49 Family history of ischemic heart disease and other diseases of the circulatory system; Z83.3 Family history of diabetes mellitus
CPT/HCPCS: 71045; 80048; 80053; 81003; 82272; 82728; 82948; 83540; 84466; 85014; 85018; 85025; 85027; 85610; 85730; 86850; 86900; 86901; 86920; 93005; 99281; 99285; C9113; J0330; J0696; J1815; J2354; J2405; J7030; J7050; P9016; P9017; P9047